=== PATIENT | male | born 1980 | race Caucasian/White ===

== ENCOUNTER 2019-10-24 16:49 | Emergency (ER) | payer BC ==
[2019-10-24] MEDS: Sodium Chloride 0.9% 10 ML Syringe FLUSH PRN ×2 (18:25→20:38)
[2019-10-24] MEDS ORDERED: Iopamidol 612 MG/ML 100 ML Bottle IVPUSH ONE (18:34)
[2019-10-24] MEDS ORDERED: Diatrizoate Meglumine/Diatrizoate Sodium 37% 120 ML Bottle PO ONE (18:34)
--- NOTE | 2019-10-24 18:52 | EDM.PDOC ---
ED HPI GENERAL MEDICAL PROBLEM - General Chief Complaint: Abdominal Pain Stated Complaint: ABDOMINAL PAIN Time Seen by Provider: 10/24/19 17:44 Source of Information: Reports: Patient, RN Notes Reviewed History Limitations: Reports: No Limitations - History of Present Illness INITIAL COMMENTS - FREE TEXT/NARRATIVE: Patient is a 39-year-old male who presents to the ED for the evaluation of abdominal pain. The patient notes that he has been having upper abdominal pain for about 1 week, and seems to be having issues with this almost daily. He does note however this morning at around 4 AM he developed right lower quadrant abdominal pain, and this pain has been present since it started. He noted that his abdomen felt hard after the onset of the right lower quadrant abdominal pain. He did try some chamomile tea, and a probiotic, and states that his stomach "gurgled", and then he felt somewhat better. The patient notes that he likes to try holisitic or natural approach at home. He notes that he is having nausea and diarrhea but no vomiting. He further notes that he developed white stools this morning with the abdominal pain. He denies any fevers or chills, but states that he feels hot and cold he denies any chest pain or shortness of breath. The patient notes he does have pretty bad teeth, and has had infections on and off from this, but also has not seen any sort of doctor for treatment of this nor has he seen a dentist. He was wondering if his infected teeth could be draining into his stomach causing some of his issues. He notes that he does brush his teeth with peroxide and vinegar. The patient does not have a primary care physician, he is a 1 pack/day smoker for 24 years, he drinks 1 beer daily, and he denies any drug use. He states that he used to be in a pain management program for his chronic back pain, and he used to take Percocet, fentanyl patches, and Neurontin, he has not taken any sort of these medications for around 10 years now. He states when he has pain he tried CBD oil or ibuprofen. Upper Abdomen Pain Score (Numeric/FACES): 7 - Related Data Allergies Allergy/AdvReac Type Severity Reaction Status Date / Time No Known Allergies Allergy Verified 10/24/19 17:07 Home Meds: Home Meds levoFLOXacin [Levaquin] 500 mg PO DAILY #4 tab 10/24/19 [Rx] metroNIDAZOLE [Flagyl] 500 mg PO TID #14 tab 10/24/19 [Rx] Past Medical History - Past Surgical History HEENT Surgical History: Reports: Other (See Below) Other HEENT Surgeries/Procedures: lots of decay and cavities and says the percocet did this to him Musculoskeletal Surgical History: Reports: Other (See Below) Other Musculoskeletal Surgeries/Procedures:: back surgery L5 S1 fusion and dissectomy; spinal nerve stimiiulaor placed Social & Family History - Tobacco Use Smoking Status *Q: Current Every Day Smoker Years of Tobacco use: 24 Packs/Tins Daily: 1 - Caffeine Use Caffeine Use: Reports: Coffee - Recreational Drug Use Recreational Drug Use: No ED ROS GENERAL - Review of Systems Review Of Systems: See Below Constitutional: Denies: Fever, Chills HEENT: Reports: Dental Pain (multiple dental issues, dentition in poor repair.) Respiratory: Denies: Shortness of Breath Cardiovascular: Denies: Chest Pain Endocrine: Reports: No Symptoms GI/Abdominal: Reports: Abdominal Pain (RLQ), Diarrhea, Nausea, Other ("White" stools). Denies: Black Stool, Constipation, Decreased Appetite, Vomiting : Denies: Dysuria, Frequency, Urgency Musculoskeletal: Reports: No Symptoms Skin: Reports: No Symptoms Neurological: Reports: No Symptoms Psychiatric: Reports: No Symptoms Hematologic/Lymphatic: Reports: No Symptoms Immunologic: Reports: No Symptoms ED EXAM, GI/ABD - Physical Exam Exam: See Below Exam Limited By: No Limitations General Appearance: Alert, WD/WN, No Apparent Distress Eyes: Bilateral: Normal Appearance, EOMI Ears: Normal External Exam, Normal Canal, Hearing Grossly Normal, Normal TMs Nose: Normal Inspection, Normal Mucosa, No Blood Throat/Mouth: Normal Inspection, Normal Lips, Normal Gums, Normal Oropharynx, Normal Voice, No Airway Compromise, Other (Dentition in very poor repair, most of all of the teeth, have cavities near the gum lines on the outer aspect of the tooth. No focal abscess, or redness noted. Patient states that the tenderness is pretty well present to all teeth.) Head: Atraumatic, Normocephalic Neck: Normal Inspection, Supple, Non-Tender, Full Range of Motion Respiratory/Chest: No Respiratory Distress, Lungs Clear, Normal Breath Sounds, No Accessory Muscle Use, Chest Non-Tender Cardiovascular: Normal Peripheral Pulses, Regular Rate, Rhythm, No Murmur GI/Abdominal Exam: Normal Bowel Sounds, Soft, No Distention, Rebound (RLQ), Tender (RLQ). No: Rigid Back Exam: Normal Inspection Extremities: Normal Inspection, Normal Capillary Refill Neurological: Alert, Oriented, Normal Cognition, No Motor/Sensory Deficits Psychiatric: Normal Affect, Normal Mood Skin Exam: Warm, Dry, Intact, Normal Color, No Rash Course - Vital Signs Last Recorded V/S: Last Vital Signs Temp 97.4 F 10/24/19 17:05 Pulse 83 10/24/19 17:05 Resp 20 10/24/19 17:05 BP 155/109 H 10/24/19 17:05 Pulse Ox 97 10/24/19 17:05 - Orders/Labs/Meds Orders: Active Orders 24 hr Category Date Time Status Peripheral IV Care [RC] . DIRECTED Care 10/24/19 18:04 Ordered Sodium Chloride 0.9% [Saline Flush] Med 10/24/19 18:04 Ordered 10 ml FLUSH ASDIRECTED PRN Peripheral IV Insertion Adult [OM.PC] Routine Oth 10/24/19 18:04 Ordered Medication Orders Sodium Chloride (Saline Flush) 10 ml FLUSH ASDIRECTED PRN PRN Reason: Keep Vein Open Last Admin: 10/24/19 20:38 Dose: 10 ml Admin: 10/24/19 18:25 Dose: 10 ml Labs: Laboratory Tests 10/24/19 10/24/19 10/24/19 Range/Units 18:10 18:21 18:21 WBC 16.48 H (4.23-9.07) K/mm3 RBC 5.01 (4.63-6.08) M/mm3 Hgb 15.9 (13.7-17.5) gm/dl Hct 45.1 (40.1-51.0) % MCV 90.0 (79.0-92.2) fl MCH 31.7 (25.7-32.2) pg MCHC 35.3 (32.2-35.5) g/dl RDW Std Deviation 41.6 (35.1-43.9) fL Plt Count 352 H (163-337) K/mm3 MPV 9.1 L (9.4-12.3) fl Neutrophils % (Manual) 46 (40-60) % Band Neutrophils % 0 (0-10) % Lymphocytes % (Manual) 33 (20-40) % Atypical Lymphs % 0 % Monocytes % (Manual) 2 (2-10) % Eosinophils % (Manual) 19 H (0.8-7.0) % Basophils % (Manual) 0 L (0.2-1.2) Platelet Estimate Adequate Plt Morphology Comment Normal RBC Morph Comment Normal Sodium 136 (136-145) mEq/L Potassium 3.9 (3.5-5.1) mEq/L Chloride 101 (98-107) mEq/L Carbon Dioxide 25 (21-32) mEq/L Anion Gap 13.9 (5-15) BUN 11 (7-18) mg/dL Creatinine 1.0 (0.7-1.3) mg/dL Est Cr Clr Drug Dosing 114.17 mL/min Estimated GFR (MDRD) > 60 (>60) mL/min BUN/Creatinine Ratio 11.0 L (14-18) Glucose 99 (74-106) mg/dL Calcium 9.6 (8.5-10.1) mg/dL Total Bilirubin 0.4 (0.2-1.0) mg/dL AST 16 (15-37) U/L ALT 26 (16-63) U/L Alkaline Phosphatase 80 (46-116) U/L C-Reactive Protein (<1.0) mg/dL Total Protein 7.7 (6.4-8.2) g/dl Albumin 4.0 (3.4-5.0) g/dl Globulin 3.7 gm/dL Albumin/Globulin Ratio 1.1 (1-2) Lipase 116 (73-393) U/L Urine Color Light yellow (Yellow) Urine Appearance Clear (Clear) Urine pH 6.0 (5.0-8.0) Ur Specific [place] 1.015 (1.005-1.030) Urine Protein Negative (Negative) Urine Glucose (UA) Negative (Negative) Urine Ketones Negative (Negative) Urine Occult Blood Negative (Negative) Urine Nitrite Negative (Negative) Urine Bilirubin Negative (Negative) Urine Urobilinogen 0.2 (0.2-1.0) Ur Leukocyte Esterase Negative (Negative) Urine RBC Not seen (0-5) /hpf Urine WBC Not seen (0-5) /hpf Ur Squamous Epith Cells 0-5 (0-5) /hpf Urine Bacteria Not seen (FEW) /hpf Urine Mucus Not seen (FEW) /hpf 10/24/19 Range/Units 18:21 WBC (4.23-9.07) K/mm3 RBC (4.63-6.08) M/mm3 Hgb (13.7-17.5) gm/dl Hct (40.1-51.0) % MCV (79.0-92.2) fl MCH (25.7-32.2) pg MCHC (32.2-35.5) g/dl RDW Std Deviation (35.1-43.9) fL Plt Count (163-337) K/mm3 MPV (9.4-12.3) fl Neutrophils % (Manual) (40-60) % Band Neutrophils % (0-10) % Lymphocytes % (Manual) (20-40) % Atypical Lymphs % % Monocytes % (Manual) (2-10) % Eosinophils % (Manual) (0.8-7.0) % Basophils % (Manual) (0.2-1.2) Platelet Estimate Plt Morphology Comment RBC Morph Comment Sodium (136-145) mEq/L Potassium (3.5-5.1) mEq/L Chloride (98-107) mEq/L Carbon Dioxide (21-32) mEq/L Anion Gap (5-15) BUN (7-18) mg/dL Creatinine (0.7-1.3) mg/dL Est Cr Clr Drug Dosing mL/min Estimated GFR (MDRD) (>60) mL/min BUN/Creatinine Ratio (14-18) Glucose (74-106) mg/dL Calcium (8.5-10.1) mg/dL Total Bilirubin (0.2-1.0) mg/dL AST (15-37) U/L ALT (16-63) U/L Alkaline Phosphatase (46-116) U/L C-Reactive Protein 0.5 (<1.0) mg/dL Total Protein (6.4-8.2) g/dl Albumin (3.4-5.0) g/dl Globulin gm/dL Albumin/Globulin Ratio (1-2) Lipase (73-393) U/L Urine Color (Yellow) Urine Appearance (Clear) Urine pH (5.0-8.0) Ur Specific [place] (1.005-1.030) Urine Protein (Negative) Urine Glucose (UA) (Negative) Urine Ketones (Negative) Urine Occult Blood (Negative) Urine Nitrite (Negative) Urine Bilirubin (Negative) Urine Urobilinogen (0.2-1.0) Ur Leukocyte Esterase (Negative) Urine RBC (0-5) /hpf Urine WBC (0-5) /hpf Ur Squamous Epith Cells (0-5) /hpf Urine Bacteria (FEW) /hpf Urine Mucus (FEW) /hpf Meds: Medications Generic Name Dose Route Start Last Admin Trade Name Freq PRN Reason Stop Dose Admin Sodium Chloride 10 ml 10/24/19 18:04 10/24/19 20:38 Saline Flush FLUSH 10 ml ASDIRECTED PRN Administration Keep Vein Open Discontinued Medications Generic Name Dose Route Start Last Admin Trade Name Freq PRN Reason Stop Dose Admin Diatrizoate Meglum/Diatrizoate Sod 60 ml 10/24/19 18:34 10/24/19 20:38 Gastrografin 37% PO 10/24/19 18:35 90 ml ONETIME ONE Administration Iopamidol 100 ml 10/24/19 18:34 10/24/19 20:38 Isovue-300 (61%) IVPUSH 10/24/19 18:35 100 ml ONETIME ONE Administration Levofloxacin 500 mg 10/24/19 21:54 Levaquin PO 10/24/19 21:55 ONETIME ONE Metronidazole 500 mg 10/24/19 21:54 Flagyl PO 10/24/19 21:55 ONETIME ONE - Radiology Interpretation Free Text/Narrative:: CT is done, and demonstrates inflammatory change noted around the terminal ileum. Appendix not visualized with certainty. Findings raise possibility of mild Crohn's is seen. Terminal ileum is also small in size, as mentioned above it could represent a stricture or represent lack of good distention. Complicated finding within the upper left kidney either due to mild hemorrhagic cyst or solid abnormality. Contrast-enhanced MRI is strongly recommended to rule out solid abnormality. Other nonacute findings as noted in CT report. - Re-Assessments/Exams Free Text/Narrative Re-Assessment/Exam: 10/24/19 18:30 Patient presents to the ED for evaluation of abdominal pain. Did order CBC, CMP , lipase, and a CRP with an abdominal pelvis CT with contrast for evaluation. Patient requested no IV meds or fluids if at all possible. I did discuss with him that he will have to have IV contrast for the CT, he is okay with this at this time. 10/24/19 18:57 Patient's labs preliminarily are done, temperature to CBC that is impressive for an elevated white count of 16,000, manual differential is pending at this time. Metabolic panel within normal limits, and urinalysis that is within normal limits. 10/24/19 21:56 Manual differential demonstrates no left shift, but an increased eosinophil count. CT was done, and demonstrates slight inflammatory change seen around the terminal ileum terminal ileum not well distended which may represent stricture or more likely due to lack of good distention. Appendix is not visualized with certainty. No free fluid seen no other inflammatory change seen. I did discuss the results with our surgeon on-call, Dr. Case Messer , and he thinks this patient would be a good candidate for oral antibiotics and watchful waiting at home. He does suggest 500 mg levofloxacin daily and 500 mg Flagyl 3 times daily for 5 days. He notes that if the patient is not much better by tomorrow night, or if the patient feels his symptoms are worsening, he is to come back to the ER for evaluation. Dr. Messer also notes that if the antibiotics seem to be helping, he may follow-up with him in clinic on Wednesday morning. All of these findings were discussed with the patient and his , and they are understanding of this at this time. Departure - Departure Time of Disposition: 22:00 Disposition: Home, Self-Care 01 Condition: Fair Clinical Impression: RLQ abdominal pain - Discharge Information *PRESCRIPTION DRUG MONITORING PROGRAM REVIEWED*: No *COPY OF PRESCRIPTION DRUG MONITORING REPORT IN PATIENT FRANKY: No Instructions: Appendicitis, [id number] Referrals: PCP,None [Primary Care Provider] - Forms: ED Department Discharge Additional Instructions: You were evaluated in the ER today regarding your abdominal pain. Laboratory evaluation demonstrated an increased white count at 16,000, your metabolic panel was within normal limits as was your UA. Your CT demonstrated some inflammatory change seen around the terminal ileum, however the appendix was not greatly visualized, so I cannot tell you for sure if this is appendicitis or not. You were given an educational handout on appendicitis, this will contain worrisome signs and symptoms to watch out for. I did consult our surgeon on-call, and he recommended starting you on outpatient antibiotics. Your first dose was given in the ER tonight, and the rest of your prescription was sent to the pharmacy and [employer] [facility]. Dr. Case Messer, recommends that if you are not feeling much better or your symptoms worsen by tomorrow night, that you come back to the ER for re- evaluation, however if the antibiotics seem to be helping, and you are feeling better, you may follow-up with him in clinic on Wednesday morning. The [facility] telephone number is [phone], please call tomorrow, to set up this appointment on Wednesday. Your CT also demonstrated a 2.7 cm mass on your upper left kidney, etiology of this was undetermined by CT. Our radiologist recommends that you have an abdominal MRI with contrast for further evaluation. You will need to follow-up with primary care provider of choice, recommend Dr. Fuad Boyle, as a provider. You will need to call and schedule an appoint with him, for further management of this kidney mass. You were given a copy of your CT results from today's visit, although both providers will be made aware of your situation. Please return to the ER at any time if your symptoms change or worsen. - My Orders Last 24 Hours: My Active Orders 10/24/19 18:04 Peripheral IV Care [RC] . DIRECTED Sodium Chloride 0.9% [Saline Flush] 10 ml FLUSH ASDIRECTED PRN Peripheral IV Insertion Adult [OM.PC] Routine - Assessment/Plan Last 24 Hours: My Active Orders 10/24/19 18:04 Peripheral IV Care [RC] . DIRECTED Sodium Chloride 0.9% [Saline Flush] 10 ml FLUSH ASDIRECTED PRN Peripheral IV Insertion Adult [OM.PC] Routine
--- NOTE | 2019-10-24 21:12 | CT ---
CT abdomen and pelvis Technique: Multiple axial sections were obtained from above the dome of the diaphragm inferiorly through the pubic symphysis. Intravenous and oral contrast has been given. Delayed images were also obtained through the bladder. Comparison: No prior abdominal imaging is available. Findings: Visualized lung bases show nothing acute. Liver shows no focal parenchymal abnormality. Spleen appears within normal limits. Gallbladder contains no calcified gallstones. Adrenal glands show no nodule. Abnormality is noted within the upper left kidney measuring 2.7 cm in size. This does not have Hounsfield unit measurements of a simple cyst and could represent solid abnormality or slightly hemorrhagic cyst. No additional abnormality is seen within the kidneys. Further workup will be recommended. Aorta shows no aneurysm. No retroperitoneal adenopathy is seen. No pelvic mass or adenopathy is identified. Delayed images shows contrast within the bladder. Slight inflammatory change is seen around the terminal ileum. Terminal ileum is not well distended which may represent stricture or more likely due to lack of good distention. The appendix is not visualized with certainty. No other inflammatory change is seen. No free fluid is seen. Bone window settings were reviewed which shows previous surgery at L5-S1. No acute osseous finding is seen. Impression: 1. Mild inflammatory change is noted around the terminal ileum. Findings raise the possibility of mild Crohn's disease. Terminal along is also small in size. As mentioned above, this could represent stricture or represent lack of good distention. 2. Complicated finding within the upper left kidney either due to mildly hemorrhagic cyst or solid abnormality. Contrast enhanced MRI is strongly recommended to rule out solid abnormality. 3. Other findings as noted above which appear nonacute. Diagnostic code #9 This report was dictated in [place] Standard Time
[2019-10-24] MEDS ORDERED: metroNIDAZOLE 500 MG Tab PO ONE (21:54)
[2019-10-24] MEDS ORDERED: Levofloxacin 500 MG Tab PO ONE (21:54)
== END 2019-10-24 22:15 | disposition home or self-care (01) ==
LOC: JD.ED 16:49
DX: R10.31 Right lower quadrant pain (principal); F17.210 Nicotine dependence, cigarettes, uncomplicated
CPT/HCPCS: 36415; 74177; 80053; 81001; 83690; 85007; 85027; 86140; 99284; A9270; Q9963; Q9967; 99283

== ENCOUNTER 2019-10-27 14:03 | Day surgery (SDC) | payer BC ==
[~2019-10-27 14:03] MED LIST: Lactated Ringers 1,000 ML IV SCH; Lidocaine 1%/Sod Bicarbonate in NS 8.4% 1 ML Syringe IDERM PRN
[2019-10-27] MEDS ORDERED: Propofol 200 MG/20 ML SDV ONE ×2 (14:22→14:57)
[2019-10-27] MEDS ORDERED: Ondansetron 4 MG/2 ML SDV ONE (14:23)
[2019-10-27] MEDS ORDERED: fentaNYL 250 MCG/5 ML SDV ONE (14:23)
[2019-10-27] MEDS ORDERED: Midazolam 1 MG/ML 2 ML SDV ONE (14:23)
[2019-10-27] MEDS ORDERED: Lidocaine 1% 6 ML ONE (14:23)
[2019-10-27] MEDS ORDERED: Succinylcholine/Normal Saline 100 MG/5 ML Syringe ONE ×2 (14:29)
[2019-10-27] MEDS: Bupivacaine 0.5%/EPINEPHrine 1:200,000 50 ML MDV ONE ×2 (14:38→15:25)
--- NOTE | 2019-10-27 14:40 | PCM.PREANE ---
Preanesthetic Assessment - Anesthesia/Transfusion/Family Hx Anesthesia History: Prior Anesthesia Without Reaction Transfusion History: No Prior Transfusion(s) Intubation History: Unknown - Review of Systems General: No Symptoms Pulmonary: No Symptoms Cardiovascular: No Symptoms Gastrointestinal: No Symptoms Neurological: No Symptoms Other: Reports: None - Physical Assessment NPO Status Date: 10/27/19 NPO Status Time: 09:00 Height: 1.88 m Weight: 99.705 kg ASA Class: 2 Mental Status: Alert & Oriented x3 Airway Class: Mallampati = 3 Dentition: Reports: Broken Tooth/Teeth, Missing Tooth/Teeth (patient verbalizes the understanding of the possibility of losing his decayed teeth, and agrees to proceed), Caries (severely decayed upper front teeth. Missing rt upper medial incisor, very decayed bilat upper incisors and premolars ) Thyro-Mental Finger Breadths: 3 Mouth Opening Finger Breadths: 3 Lungs: Clear to Auscultation, Normal Respiratory Effort - Allergies Allergies/Adverse Reactions: Allergies Allergy/AdvReac Type Severity Reaction Status Date / Time No Known Allergies Allergy Verified 10/24/19 17:07 - Acknowledgements Anesthesia Type Planned: General Anesthesia Pt an Appropriate Candidate for the Planned Anesthesia: Yes Alternatives and Risks of Anesthesia Discussed w Pt/Guardian: Yes Pt/Guardian Understands and Agrees with Anesthesia Plan: Yes Additional Comments: patient verbalizes the understanding of the possibility of losing his decayed teeth, and agrees to proceed PreAnesthesia Questionnaire Respiratory History: Reports: Bronchitis, Recurrent Other Neuro History: reports numbness at the back of heels - Past Surgical History HEENT Surgical History: Reports: Other (See Below) Other HEENT Surgeries/Procedures: lots of decay and cavities and says the percocet did this to him Musculoskeletal Surgical History: Reports: Other (See Below) Other Musculoskeletal Surgeries/Procedures:: back surgery L5 S1 fusion and dissectomy; spinal nerve stimiiulaor placed - History Comment History Comment: exposure to Methylbromate 2010, no sequelae - SUBSTANCE USE Smoking Status *Q: Heavy Tobacco Smoker Days Per Week of Alcohol Use: 7 Number of Drinks Per Day: 2 Total Drinks Per Week: 14 - HOME MEDS Home Medications: Home Meds levoFLOXacin [Levaquin] 500 mg PO DAILY #4 tab 10/24/19 [Rx] metroNIDAZOLE [Flagyl] 500 mg PO TID #14 tab 11/26/19 [Rx] - CURRENT (IN HOUSE) MEDS Current Meds: Current Medications Discontinued Medications Bupivacaine HCl/Epinephrine Bitart (Marcaine 0.5%/Epinephrine 1:200,000) Confirm Administered Dose 50 ml .ROUTE .STK-MED ONE Stop: 10/27/19 14:30 Fentanyl (Sublimaze) Confirm Administered Dose 250 mcg .ROUTE .STK-MED ONE Stop: 10/27/19 14:24 Lidocaine HCl (Xylocaine-Mpf 1%) Confirm Administered Dose 6 mls @ as directed .ROUTE .STK-MED ONE Stop: 10/27/19 14:24 Midazolam HCl (Versed 1 Mg/Ml) Confirm Administered Dose 4 mg .ROUTE .STK-MED ONE Stop: 10/27/19 14:24 Ondansetron HCl (Zofran) Confirm Administered Dose 8 mg .ROUTE .STK-MED ONE Stop: 10/27/19 14:24 Propofol (Diprivan 20 Ml) Confirm Administered Dose 200 mg .ROUTE .STK-MED ONE Stop: 10/27/19 14:23 Succinylcholine Chloride (Succinylcholine In Ns Pf) Confirm Administered Dose 100 mg .ROUTE .STK-MED ONE Stop: 10/27/19 14:30 Succinylcholine Chloride (Succinylcholine In Ns Pf) Confirm Administered Dose 100 mg .ROUTE .STK-MED ONE Stop: 10/27/19 14:30
[2019-10-27] MEDS ORDERED: Rocuronium 50 MG/5 ML Vial ONE (15:16)
[2019-10-27] MEDS ORDERED: ceFAZolin 1 GM Vial ONE (15:21)
[2019-10-27] MEDS ORDERED: Sodium Chloride 0.9% 10 ML Syringe FLUSH PRN (15:26)
[2019-10-27] MEDS ORDERED: HYDROmorphone 0.5 MG/0.5 ML Syringe ONE (15:30)
[2019-10-27] MEDS ORDERED: Esmolol 100 MG/10 ML SDV ONE (15:39)
[2019-10-27] MEDS ORDERED: Lactated Ringers 1,000 ML ONE (15:47)
[2019-10-27] MEDS ORDERED: Phenylephrine/Normal Saline 100 MCG/ML 10 ML Syringe ONE (15:52)
[2019-10-27] MEDS ORDERED: Neostigmine Methylsulfate 1 MG/ML 5 ML Syringe ONE (16:00)
--- NOTE | 2019-10-27 16:27 | PCM.PRNOTE ---
- Free Text/Narrative Note: Operative Report Operation: laparoscopic appendectomy Date: 10/27/2019 Attending Surgeon: Case Messer MD Indication for Surgery:abdominal pain with leukocytosis and inflammatory stranding near ileocecal junction on CT, concern for appendicitis vs Crohn disease Preoperative antibiotics: 2 g ancef IV VTE prophylaxis: SCDs Estimated Blood Loss: 10 cc Findings: inflammatory adhesions around the appendix, which was nestled on the anterior aspect of the cecum. The entire small bowel was inspected and appeared normal. The appendix appeared mildly inflamed. Detailed Report: The patient underwent general endotracheal anesthesia after being placed supine on the operating table and initial timeout. The left arm was tucked at the patients side. The abdomen was prepped and draped in sterile fashion. A pre- incision timeout was performed confirming the patients identity and the operation to be performed. A Veress needle was inserted into the abdominal cavity below the left costal margin along the mid-clavicular line. The abdomen was insufflated with CO2 to 15 mm Hg. Gas was aspirated below the umbilicus with a syringe in order to ensure safe placement of a 12 mm bladed laparoscopic port. The 5mm 30 degree laparoscope was then inserted and viscera inspected. Adhesive disease was noted to be centered around the appendix, which had formed a sulcus at the anterior portion of the cecum. The cecum was adhesed to the right lateral abdominal wall. Two additional 5 mm ports were placed under direct vision with the laparoscope one along the midline superior to the pubic symphysis and one in the left lower quadrant. The laparoscope was then placed through the left lower quadrant port for optimal visualization. Careful blunt dissection was performed with laparoscopic graspers until the appendix was freed from surrounding inflammatory attachments. The distal portion of the appendix was grasped with a laparoscopic clamp and retracted anteriorly and inferiorly. The [place] grasper was used to create a window in the mesoappendix where the appendix was seen coming off the cecum. A 45 mm laparoscopic stapler with white cartridge was used to divide the appendix flush with the base of the cecum. The initial fire of the stapler failed, placing half a line of karen without cutting. The second attempt was successful. An additional staple fire was used to divide the mesentery supplying the appendix. The specimen was then placed in an Endocatch bag and removed through the umbilical port. The dissection field was irrigated and inspected and appeared hemostatic after application of electrocautery to bleeding seen at the staple lines. Due to concern for possible Crohn disease, the small bowel was inspected in its entirety from the ileocecal junction to the ligamnet of [place], and all appeared normal without evidence of inflammation or stricture. The larger infraumbilical port was closed at the level of the fascia with vicryl suture using the PMI laparoscopic suture passer. Pneumoperitoneum was then released. All skin incisions were then closed with placement of subcuticular vicryl suture and dressed with dermabond. A total of 20 cc 0.5% marcaine with epinephrine was used for local anesthesia at the incision sites. The patient tolerated the operation well, was extubated in the operating room and transferred to the PACU for routine post-anesthesia care. Case Messer MD General Surgery
[2019-10-27] MEDS ORDERED: Ketorolac 30 MG/ML SDV IVPUSH ONE (16:30)
[2019-10-27] MEDS: HYDROmorphone 0.5 MG/0.5 ML Syringe IVPUSH PRN ×2 (16:33→16:54)
[2019-10-27] MEDS: fentaNYL 100 MCG/2 ML SDV IVPUSH PRN ×2 (16:34→17:02)
--- NOTE | 2019-10-27 16:35 | PCM.POSTAN ---
POST ANESTHESIA ASSESSMENT - MENTAL STATUS Mental Status: Alert, Oriented - VITAL SIGNS Vital Signs: Last Vital Signs Temp 97.5 F 10/27/19 16:20 Pulse 103 H 10/27/19 16:20 Resp 15 10/27/19 16:20 BP 134/97 H 10/27/19 16:20 Pulse Ox 98 10/27/19 16:20 - RESPIRATORY Respiratory Status: Respiratory Rate WNL, Airway Patent, O2 Saturation Stable - CARDIOVASCULAR CV Status: Blood Pressure Stable, Elevated Pulse Rate - GASTROINTESTINAL GI Status: No Symptoms - PAIN Pain Score: 8 (is been treated, orders in) - POST OP HYDRATION Hydration Status: Adequate & Stable
[2019-10-27] MEDS ORDERED: oxyCODONE 5 MG Tab PO PRN (16:57)
--- NOTE | 2019-10-27 17:03 | PCM48HPAN ---
Post Anesthesia Note - EVALUATION WITHIN 48HRS OF ANESTHETIC Vital Signs in Normal Range: Yes Patient Participated in Evaluation: Yes Respiratory Function Stable: Yes Airway Patent: Yes Cardiovascular Function Stable: Yes Hydration Status Stable: Yes Pain Control Satisfactory: Yes Nausea and Vomiting Control Satisfactory: Yes Mental Status Recovered: Yes Vital Signs: Last Vital Signs Temp 97.9 F 10/27/19 17:00 Pulse 94 10/27/19 17:00 Resp 16 10/27/19 17:00 BP 115/82 10/27/19 17:00 Pulse Ox 95 10/27/19 17:00 - COMMENTS/OBSERVATIONS Free Text/Narrative:: pt is being transferred to [facility] floor for extended recovery
== END 2019-10-27 20:11 | disposition home or self-care (01) ==
LOC: JD.SDS 14:03 → JD.MS 17:45 → JD.SDS 20:11
PROVIDERS: ATTEND Surgery
DX: K38.8 Other specified diseases of appendix (principal); G89.29 Other chronic pain; M54.9 Dorsalgia, unspecified; F17.210 Nicotine dependence, cigarettes, uncomplicated; Z79.899 Other long term (current) drug therapy
CPT/HCPCS: 44970; A9270; J0330; J0690; J1170; J1885; J2001; J2250; J2370; J2405; J2704; J2710; J3010; J3490; J7120; 00840

== ENCOUNTER 2019-10-28 14:33 | Emergency (ER) | payer BC ==
[2019-10-28] MEDS ORDERED: HYDROmorphone 1 MG/ML Syringe IM ONE (16:36)
--- NOTE | 2019-10-28 16:45 | EDM.PDOC ---
ED HPI GENERAL MEDICAL PROBLEM - General Chief Complaint: Upper Extremity Injury/Pain Stated Complaint: RT SWOLLEN SHOULDER POST SURGERY Time Seen by Provider: 10/28/19 16:25 Source of Information: Reports: Patient, Old Records, RN Notes Reviewed History Limitations: Reports: No Limitations - History of Present Illness INITIAL COMMENTS - FREE TEXT/NARRATIVE: Patient is a 39-year-old male who presents to the ED for the evaluation of right shoulder pain. He did have a laparoscopic appendectomy performed yesterday by Dr. Case Messer at this facility. Patient notes he has been having right shoulder pain ever since the surgery. He states that the pain is getting worse, and is limiting range of motion to his arm. He does report some mild numbness and tingling into his extremity with some appreciated swelling of the right hand. Patient did take oxycodone 5 mg at around 2 PM today, this is not provided much relief. Ibuprofen taken at around 9 this morning also did not provide much relief. Patient is taking his antibiotics as prescribed. His has tried heat and ice to the area, massage, and Aspercreme and this is also not helped much. The patient states he is not having much pain in his abdomen whatsoever. Right Shoulder Pain Score (Numeric/FACES): 10 - Related Data Allergies Allergy/AdvReac Type Severity Reaction Status Date / Time No Known Allergies Allergy Verified 10/28/19 15:15 Home Meds: Home Meds levoFLOXacin [Levaquin] 500 mg PO DAILY #4 tab 10/24/19 [Rx] metroNIDAZOLE [Flagyl] 500 mg PO TID #14 tab 10/24/19 [Rx] oxyCODONE 5 mg PO Q4H PRN #10 tab 10/27/19 [Rx] Past Medical History HEENT History: Reports: Impaired Vision Respiratory History: Reports: Bronchitis, Recurrent Gastrointestinal History: Reports: Inflammatory Bowel Disease Genitourinary History: Reports: Other (See Below) Other Genitourinary History: Mass to left kidney, going to see doctor on the Musculoskeletal History: Reports: Back Pain, Chronic Neurological History: Reports: Concussion Other Neuro History: reports numbness at the back of heels - Past Surgical History HEENT Surgical History: Reports: Other (See Below) Other HEENT Surgeries/Procedures: lots of decay and cavities and says the percocet did this to him GI Surgical History: Reports: Appendectomy Musculoskeletal Surgical History: Reports: Other (See Below) Other Musculoskeletal Surgeries/Procedures:: back surgery L5 S1 fusion and dissectomy; spinal nerve stimiiulaor placed - History Comment History Comment: exposure to Methylbromate 2009, no sequelae Social & Family History - Tobacco Use Smoking Status *Q: Current Every Day Smoker Years of Tobacco use: 24 Packs/Tins Daily: 1.5 - Caffeine Use Caffeine Use: Reports: Coffee - Recreational Drug Use Recreational Drug Use: No Review of Systems - Review of Systems Review Of Systems: See Below Constitutional: Reports: No Symptoms Eyes: Reports: No Symptoms Ears: Reports: No Symptoms Nose: Reports: No Symptoms Mouth/Throat: Reports: No Symptoms Respiratory: Denies: Shortness of Breath Cardiovascular: Denies: Chest Pain GI/Abdominal: Denies: Abdominal Pain Genitourinary: Reports: No Symptoms Musculoskeletal: Reports: Shoulder Pain (R shoulder pain) Skin: Reports: No Symptoms Neurological: Reports: Numbness (R arm), Tingling (R arm) Psychiatric: Reports: No Symptoms ED EXAM, GENERAL - Physical Exam Exam: See Below Exam Limited By: No Limitations General Appearance: Alert, WD/WN, No Apparent Distress Throat/Mouth: Normal Inspection, Normal Lips, Normal Teeth, Normal Gums, Normal Oropharynx, Normal Voice, No Airway Compromise Head: Atraumatic, Normocephalic Neck: Normal Inspection, Non-Tender, Full Range of Motion Respiratory/Chest: No Respiratory Distress, Lungs Clear, Normal Breath Sounds, No Accessory Muscle Use, Chest Non-Tender Cardiovascular: Normal Peripheral Pulses, Regular Rate, Rhythm, No Murmur Peripheral Pulses: 3+: Radial (L), Radial (R) GI/Abdominal: Normal Bowel Sounds, Soft, Non-Tender, No Distention, No Mass, Other (3 well-healing laparoscopic surgery sites. Mild bruising noted around all sites. No obvious redness or inflammation noted.) Extremities: Normal Inspection, Non-Tender, Normal Capillary Refill, Arm Pain ( Right arm/shoulder), Limited Range of Motion (Of right arm due to pain.). No: Mottled, Pallor Neurological: Alert, Oriented, Normal Cognition, No Motor/Sensory Deficits Psychiatric: Normal Affect, Normal Mood Skin Exam: Warm, Dry, Intact, Normal Color, No Rash Course - Vital Signs Last Recorded V/S: Last Vital Signs Temp 98.0 F 10/28/19 15:16 Pulse 83 10/28/19 15:16 Resp 16 10/28/19 15:16 BP 144/110 H 10/28/19 15:16 Pulse Ox 97 10/28/19 15:16 - Orders/Labs/Meds Orders: Active Orders 24 hr Category Date Time Status Abdomen 1V Upright [CR] Stat Exams 10/28/19 16:38 Ordered Chest 1V Frontal [CR] Stat Exams 10/28/19 16:36 Ordered Meds: Medications Discontinued Medications Generic Name Dose Route Start Last Admin Trade Name Nicolasa PRN Reason Stop Dose Admin Hydromorphone HCl 1 mg 10/28/19 16:36 10/28/19 16:52 Dilaudid IM 10/28/19 16:37 1 mg ONETIME ONE Administration - Re-Assessments/Exams Free Text/Narrative Re-Assessment/Exam: 10/28/19 16:44 Patient presents to the ED for evaluation of right shoulder pain after surgery. I did discuss his clinical course with Dr. Todd, and he states it is very common for patients that have laparoscopic surgery to have referred pain into the right shoulder, because the air has not absorbed fully yet. He states this can take up to a couple days for this to get better. He suggested doing a chest x-ray and a one view abdomen to evaluate for free air. I did also order 1 mg of IM Dilaudid for the patient's pain management. 10/28/19 17:15 Patient's x-rays were reviewed by myself, and Dr. Todd, there were signs of free air on the right diaphragmatic border above the liver on both the abdomen and chest x-ray, which would suggest that the patient is likely suffering from referred pain due to the retained air after his laparoscopic surgery yesterday. There is also no sign of any sort of pneumothorax appreciated on the chest x- ray done today. Will discharge patient home with general recommendations, disease course can take up to 3 days to get much better. Departure - Departure Time of Disposition: 17:43 Disposition: Home, Self-Care 01 Condition: Fair Clinical Impression: Surgical pneumoperitoneum, Referred abdominal pain Right shoulder pain Qualifiers: Chronicity: acute Qualified Code(s): M25.511 - Pain in right shoulder - Discharge Information *PRESCRIPTION DRUG MONITORING PROGRAM REVIEWED*: Yes *COPY OF PRESCRIPTION DRUG MONITORING REPORT IN PATIENT FRANKY: No Referrals: Fuad Gutierrez MD [Primary Care Provider] - Forms: ED Department Discharge Additional Instructions: You were evaluated in the ER today regarding your right shoulder pain. X-rays were obtained of your chest and your abdomen, and do demonstrate that you have some free air left in your abdomen after your laparoscopic surgery. This will reabsorb by itself, but may take up to 3 days to do so. This can cause pain that radiates up to your right shoulder. This is likely what is causing your right shoulder pain at today's visit. Recommend you take your pain medications as prescribed, and that you sleep upright, in an easy chair, if this provide you some relief from the pain. Unfortunately there is not a lot that can be done clinically, and this will need to try to resolve on its own. If you are still having pain, Wednesday, October 30, recommend you follow-up with your surgeon that performed your surgery. Please return to the ER at any time if your symptoms change or worsen. - My Orders Last 24 Hours: My Active Orders 10/28/19 16:36 Chest 1V Frontal [CR] Stat 10/28/19 16:38 Abdomen 1V Upright [CR] Stat - Assessment/Plan Last 24 Hours: My Active Orders 10/28/19 16:36 Chest 1V Frontal [CR] Stat 10/28/19 16:38 Abdomen 1V Upright [CR] Stat
--- NOTE | 2019-10-30 10:17 | CR ---
Chest: Frontal view of the chest was obtained. Comparison: No prior chest x-ray. Heart size and mediastinum are normal. Lungs are clear. Small amount of free air is seen beneath the right hemidiaphragm. Bony structures are grossly intact. Impression: 1. Small amount of free air beneath the right hemidiaphragm. 2. Nothing acute seen on frontal chest x-ray. Diagnostic code #3 This report was dictated in [place] Standard Time
--- NOTE | 2019-10-30 10:17 | CR ---
Abdomen: Supine and upright views the abdomen were obtained. Comparison: Prior CT abdomen and pelvis exam of 10/24/19. Electrostimulation wires are noted. Prior lower lumbar spine surgery is seen. Bowel gas pattern is normal. Small amount of free air is noted underneath the right hemidiaphragm. No abnormal calcifications or soft tissue abnormality is seen. Impression: 1. Small amount of free air beneath the right hemidiaphragm. 2. Other findings which are believed to be incidental as described above. Diagnostic code #3 This report was dictated in [place] Standard Time
== END 2019-10-28 18:31 | disposition home or self-care (01) ==
LOC: JD.ED 14:33
DX: K91.89 Other postprocedural complications and disorders of digestive system (principal); M25.511 Pain in right shoulder; F17.210 Nicotine dependence, cigarettes, uncomplicated
CPT/HCPCS: 71045; 74018; 96372; 99284; J1170

== ENCOUNTER 2019-11-30 07:43 | Day surgery (SDC) | payer BC ==
[~2019-11-30 07:43] MED LIST changes: +Sodium Chloride 0.9% 10 ML Syringe FLUSH PRN
--- NOTE | 2019-11-30 08:40 | PCM.PREANE ---
Preanesthetic Assessment - Anesthesia/Transfusion/Family Hx Anesthesia History: Prior Anesthesia Without Reaction Family History of Anesthesia Reaction: No Transfusion History: No Prior Transfusion(s) Intubation History: Unknown - Review of Systems General: No Symptoms Pulmonary: No Symptoms (1-2 ppd smoker, denies cough unless he is running. ) Cardiovascular: No Symptoms, Other (Cardiac event in 2009. 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 Chest pain with no intervention needed at that time. No episoded of chest pain since. ) Gastrointestinal: Abdominal Pain (Left side since 10/24/2019. CDiff with antibiotics completed. ) Neurological: Pre-Existing Deficit (Chronic back pain. Spinal cord stimulator that is currently off. Not taking narcotics for pain at this time. ) Other: Reports: Neck Pain (Neck feels stiff today. Full ROM noted. ) - Physical Assessment NPO Status Date: 11/30/19 NPO Status Time: 04:30 Vital Signs: Last Vital Signs Temp 36.5 C 11/30/19 08:00 Pulse 81 11/30/19 08:00 Resp 16 11/30/19 08:00 BP 146/87 H 11/30/19 08:00 Pulse Ox 97 11/30/19 08:00 Height: 1.88 m Weight: 100.698 kg ASA Class: 2 Mental Status: Alert & Oriented x3 Airway Class: Mallampati = 2 Dentition: Reports: Broken Tooth/Teeth (Missing front tooth. Teeth are black at gumline. Jason states they all need to be pulled out. ), Missing Tooth/Teeth, Caries Thyro-Mental Finger Breadths: 3 Mouth Opening Finger Breadths: 3 ROM/Head Extension: Full Lungs: Clear to Auscultation, Normal Respiratory Effort Cardiovascular: Regular Rate, Regular Rhythm - Allergies Allergies/Adverse Reactions: Allergies Allergy/AdvReac Type Severity Reaction Status Date / Time No Known Allergies Allergy Verified 11/28/19 13:02 - Acknowledgements Anesthesia Type Planned: MAC Pt an Appropriate Candidate for the Planned Anesthesia: Yes Alternatives and Risks of Anesthesia Discussed w Pt/Guardian: Yes Pt/Guardian Understands and Agrees with Anesthesia Plan: Yes PreAnesthesia Questionnaire HEENT History: Reports: Impaired Vision Cardiovascular History: Reports: None Respiratory History: Reports: Bronchitis, Recurrent Gastrointestinal History: Reports: Inflammatory Bowel Disease Genitourinary History: Reports: Other (See Below) Other Genitourinary History: Mass to left kidney, going to see doctor on the RECORDING ARTIST History: Reports: None Musculoskeletal History: Reports: Back Pain, Chronic Neurological History: Reports: Concussion Other Neuro History: reports numbness at the back of heels Psychiatric History: Reports: None Endocrine/Metabolic History: Reports: None Hematologic History: Reports: None Immunologic History: Reports: None Oncologic (Cancer) History: Reports: None Dermatologic History: Reports: None - Past Surgical History HEENT Surgical History: Reports: Tonsillectomy, Other (See Below) Other HEENT Surgeries/Procedures: lots of decay and cavities and says the percocet did this to him Cardiovascular Surgical History: Reports: None Respiratory Surgical History: Reports: None GI Surgical History: Reports: Appendectomy Endocrine Surgical History: Reports: None Neurological Surgical History: Reports: Spinal Fusion Musculoskeletal Surgical History: Reports: Other (See Below) Other Musculoskeletal Surgeries/Procedures:: back surgery L5 S1 fusion and dissectomy; spinal nerve stimiiulaor placed Oncologic Surgical History: Reports: None Dermatological Surgical History: Reports: None - History Comment History Comment: exposure to Methylbromate 2009, no sequelae - SUBSTANCE USE Smoking Status *Q: Current Every Day Smoker Recreational Drug Use History: No - HOME MEDS Home Medications: Home Meds Ibuprofen 200 mg PO ASDIRECTED PRN 11/30/19 [History] - CURRENT (IN HOUSE) MEDS Current Meds: Current Medications Lactated Ringer's (Ringers, Lactated) 1,000 mls @ 125 mls/hr IV ASDIRECTED LATRICE Stop: 11/30/19 23:00 Last Admin: 11/30/19 08:15 Dose: 125 mls/hr Lidocaine/Sodium Bicarbonate (Buffered Lidocaine 1% In Ns 8.4%) 0.25 ml IDERM ONETIME PRN PRN Reason: Prior to IV Start Stop: 11/30/19 23:00 Last Admin: 11/30/19 08:15 Dose: 0.25 ml Sodium Chloride (Saline Flush) 10 ml FLUSH ASDIRECTED PRN PRN Reason: Keep Vein Open Stop: 11/30/19 23:00
[2019-11-30] MEDS ORDERED: Propofol 200 MG/20 ML SDV ONE ×2 (09:01→09:42)
[2019-11-30] MEDS ORDERED: fentaNYL 100 MCG/2 ML SDV ONE (09:02)
[2019-11-30] MEDS ORDERED: Lidocaine 1% 4 ML ONE (09:02)
--- NOTE | 2019-11-30 10:08 | PCM.PRNOTE ---
- Free Text/Narrative Note: Date: 11/30/2019 Procedure: diagnostic upper and lower endoscopy Endoscopist: Case Messer MD Indications: Chronic bloating and diarrhea with imaging showing possible terminal ileitis. Now s/p appendectomy and treatment for C diff infection after positive test result two weeks ago, with no significant improvement in symptoms. Findings: friable gastric mucosa. Otherwise normal appearing upper and lower endoscopy. Sampling mucosal biopsies were obtained. Detailed Report: The patient was taken to the endoscopy suite and placed in left lateral decubitus position. Timeout was performed, monitored anesthesia care was initiated. A bite-block was placed. The endoscope was passed from the mouth all the way to the second portion of the duodenum. On withdrawal, the duodenum appeared grossly normal. A mucosal sample biopsy was obtained. The pylorus appeared grossly normal, and antral mucosal biopsy was obtained as well. The mucosa of the gastric body was noted to be somewhat friable, with tiny superficial ulcerative lesions. On retroflexion, the fundus appeared normal, and there appeared to be no hiatal hernia. The esophagus appeared grossly normal. Next, the anus was inspected. There appeared to be some small external hemorrhoids. Digital rectal exam was unremarkable. The colonoscope was inserted and advanced all the way to the cecum. The ileocecal valve was visualized, I was unable to intubate the terminal ileum for inspection of small intestinal mucosa. The colon appeared grossly normal, biopsies were taken of mucosa near the ileocecal valve, at the descending colon, and sigmoid colon. On retroflexion in the rectum, there was no significant hemorrhoidal disease noted. No polyps or diverticular disease were identified on colonoscopy. The prep was very good. The patient tolerated the procedure well. Case Messer MD General Surgery
--- NOTE | 2019-11-30 10:16 | PCM48HPAN ---
Post Anesthesia Note - EVALUATION WITHIN 48HRS OF ANESTHETIC Vital Signs in Normal Range: Yes Patient Participated in Evaluation: Yes Respiratory Function Stable: Yes Airway Patent: Yes Cardiovascular Function Stable: Yes Hydration Status Stable: Yes Pain Control Satisfactory: Yes (cramping to abdomen) Nausea and Vomiting Control Satisfactory: Yes Mental Status Recovered: Yes Vital Signs: Last Vital Signs Temp 36.5 C 11/30/19 08:00 Pulse 81 11/30/19 08:00 Resp 16 11/30/19 08:00 BP 146/87 H 11/30/19 08:00 Pulse Ox 97 11/30/19 08:00 1006 163/100 recheck 143/100 85 18 94% 97.9F
== END 2019-11-30 11:20 | disposition home or self-care (01) ==
LOC: JD.SDS 07:43
PROVIDERS: ATTEND Surgery
DX: R19.7 Diarrhea, unspecified (principal); K64.4 Residual hemorrhoidal skin tags; K31.9 Disease of stomach and duodenum, unspecified; F17.210 Nicotine dependence, cigarettes, uncomplicated; Z90.49 Acquired absence of other specified parts of digestive tract
CPT/HCPCS: 43239; 45380; J2001; J2704; J3010; J7120; 00813